=== PATIENT | female | born 1930 | race Hispanic/Latino ===

== ENCOUNTER 2016-04-16 09:26 | Outpatient (CLI) | payer MEDICARE ==
--- NOTE | 2016-04-16 10:15 | Mammography Report ---
RIGHT DIGITAL DIAGNOSTIC MAMMOGRAM : 04/16/16 09:26:00 CLINICAL: Followup asymmetry and architectural distortion. COMPARISON:09/18/15 and 08/22/15 mammograms FINDINGS: CC and spot magnification MLO and CC views were performed. The previously described asymmetry persists on the routine CC view but is less prominent on the spot views. IMPRESSION: Stable probably benign asymmetry and architectural distortion. BI-RADS CATEGORY: 3 - - Probably Benign RECOMMENDATION: Six month followup. Recommend a bilateral diagnostic mammogram in October 2015 rather than screening mammogram in August 2015. ACR BI-RADS MAMMOGRAPHIC CODES: 0 = Needs additional imaging evaluation; 1 = Negative; 2 = Benign; 3 = Probably benign; 4 = Suspicious; 5 = Malignant; 6 = Known biopsy-proven malignancy COMMENT: 1. Dense breast tissue, i.e., adenosis, fibrocystic changes, etc., may obscure an underlying neoplasm. 2. Approximately 10% of cancers are not detected with mammography. 3. A negative mammography report should not delay biopsy if a clinically suspicious mass is present. COMMENT: Patient follow-up letters are generated via our [employer] application.
== END 2016-04-16 09:27 | disposition home or self-care (01) ==
LOC: SPVWC 09:26
PROVIDERS: ATTEND Internal Medicine
DX: N64.89 Other specified disorders of breast (principal)
CPT/HCPCS: G0206-RT

== ENCOUNTER 2016-12-10 10:58 | Outpatient (CLI) | payer MEDICARE ==
--- NOTE | 2016-12-10 14:15 | Mammography Report ---
BONE DEXA:12/10/16 10:58:00 CLINICAL: Postmenopausal. No comparison. TECHNIQUE: Two site bone DEXA performed on an Hologic scanner. FINDINGS: The average BMD of the lumbar spine L1-L4 is 1.062g/cm squared with a T-score of +0.1 and a Z-score of +3.0. The average BMD of the left hip is 0.798g/cm squared with a T-score of -1.2 and a Z-score of +1.1. IMPRESSION: 1. WHO classification: Normal with average fracture risk based on lumbar spine measurements. 2. WHO classification: Osteopenia with increased fracture risk based on left hip measurements. RECOMMENDATION: Clinical correlation and routine screening. DEFINITIONS: BMD = Bone Mineral Density T-score = BMD related to mean peak bone mass of young adult (mean expressed in Standard Deviation) Z-score = Age matched BMD expressed in SD World Health Organization (WHO) Diagnostic Criteria Normal T-score > -1 SD Osteopenia T-score between -1 and -2.4 SD Osteoporosis T-score -2.5 SD or below NOTE: BMD is not the only risk factor for fracture. One should also consider factors such as the patient's age, risk of falling, previous osteoporotic fracture, family history of osteoporotic fractures, current smoker, and low body weight. Z-scores are not calculated if >80 years of age.
--- NOTE | 2016-12-10 15:07 | Mammography Report ---
BILATERAL DIGITAL SCREENING MAMMOGRAM with CAD : 12/10/16 10:58:00 CLINICAL: Routine screening.We have been following a right asymmetry with architectural distortion at six month intervals since 08/22/15. COMPARISON:08/22/15 and right mammograms from 09/18/15 and 04/16/16. Right breast ultrasound was performed 09/18/15. FINDINGS: The breasts are heterogeneously dense, which may obscure small masses.The previously described right inner asymmetry is slightly more prominent on one CC view but demonstrates satisfactory effacement on a better positioned CC view. Stable architectural distortion. This asymmetry and architectural distortion is adjacent to a biopsy clip. As on prior studies, there is no correlate on the MLO. A new left outer asymmetry on the CC view requires additional imaging. There is no definite correlate on the left MLO view. IMPRESSION: A new left outer asymmetry requiring additional imaging. The previously identified right inner asymmetry and architectural distortion are mammographically stable and probably represent benign scar at a biopsy site. BI-RADS CATEGORY: 0--Needs Additional Imaging RECOMMENDATION: Recall for left ML and spot compression CC views. Since she is returning for additional views of the left breast, recommend a repeat targeted right inner breast ultrasound. COMMENT: Patient follow-up letters are generated by our [employer] application.
== END 2016-12-10 10:59 | disposition home or self-care (01) ==
LOC: SPVWC 10:58
PROVIDERS: ATTEND Internal Medicine
DX: Z12.31 Encounter for screening mammogram for malignant neoplasm of breast (principal); M85.88 Other specified disorders of bone density and structure, other site; M81.0 Age-related osteoporosis without current pathological fracture; Z78.0 Asymptomatic menopausal state
CPT/HCPCS: 77080; G0202; 77067

== ENCOUNTER 2016-12-30 10:12 | Outpatient (CLI) | payer MEDICARE ==
--- NOTE | 2016-12-30 11:08 | Mammography Report ---
Left mammogram: Additional spot compression imaging performed for possible new nodule seen on recent screening study of December 10. Spot CC compression imaging with repeat CC view fails to confirm the presence of a new nodule in the left breast. The lateral projection is unchanged in 2016 as is the standard repeat CC projection. Impression: No new nodule identified. Recommendation: Annual mammogram followup. BI-RADS CATEGORY: 2 = Benign ACR BI-RADS MAMMOGRAPHIC CODES: 0 = Needs additional imaging evaluation; 1 = Negative; 2 = Benign; 3 = Probably benign; 4 = Suspicious; 5 = Malignant; 6 = Known biopsy-proven malignancy COMMENT: 1. Dense breast tissue, i.e., adenosis, fibrocystic changes, etc., may obscure an underlying neoplasm. 2. Approximately 10% of cancers are not detected with mammography. 3. A negative mammography report should not delay biopsy if a clinically suspicious mass is present.
== END 2016-12-30 10:13 | disposition home or self-care (01) ==
LOC: SPVWC 10:12
PROVIDERS: ATTEND Internal Medicine
DX: R92.8 Other abnormal and inconclusive findings on diagnostic imaging of breast (principal)
CPT/HCPCS: G0206-LT

== ENCOUNTER 2018-06-21 11:09 | Outpatient (CLI) | payer MEDICARE ==
--- NOTE | 2018-06-21 16:34 | Mammography Report ---
BILATERAL DIGITAL SCREENING MAMMOGRAM with CAD : 06/21/18 11:09:00 CLINICAL: Routine screening. COMPARISON:12/10/16 FINDINGS: The breasts are heterogeneously dense, which may obscure small masses.The fibroglandular pattern is unchanged. Bilateral benign calcifications. No mass, architectural distortion or suspicious calcifications. IMPRESSION: No mammographic evidence of malignancy. BI-RADS CATEGORY: 2 -- Benign RECOMMENDATION: Routine mammographic screening in one year. COMMENT: Patient follow-up letters are generated by our [employer] application.
== END 2018-06-21 11:10 | disposition home or self-care (01) ==
LOC: SPVWC 11:09
PROVIDERS: ATTEND Internal Medicine
DX: Z12.31 Encounter for screening mammogram for malignant neoplasm of breast (principal)
CPT/HCPCS: 77067